=== PATIENT | male | born 1995 | race Caucasian/White ===

== ENCOUNTER 2017-12-02 20:05 | Emergency (ER) | payer OTHER ==
[~2017-12-02] VITALS: Ht 182.9 cm; Wt 106.1 kg
[2017-12-02] MEDS ORDERED: TRILIPIX135 MG (20:32)
== END 2017-12-02 22:52 | disposition home or self-care (01) ==
LOC: ER 20:05
DX: B34.9 Viral infection, unspecified (principal)

== ENCOUNTER 2020-12-16 12:37 | Emergency (ER) | payer OTHER ==
[~2020-12-16] VITALS: Ht 182.9 cm; Wt 107.0 kg
[~2020-12-16 12:37] MED LIST: TRILIPIX135 MG
[2020-12-16] MEDS ORDERED: TRILIPIX135 MG PO (13:06)
[2020-12-16] MEDS ORDERED: TOPROL XL25 M1 PO (13:09)
== END 2020-12-16 14:39 | disposition home or self-care (01) ==
LOC: ER 12:37
DX: R07.89 Other chest pain (principal); I10 Essential (primary) hypertension